=== PATIENT | male | born 1980 | race African-American/Black ===

== ENCOUNTER 2020-07-18 17:42 | Emergency (ER) | payer OTHER ==
[~2020-07-18] VITALS: Ht 167.6 cm; Wt 70.8 kg
[~2020-07-18 17:42] MED LIST: FLEXERIL PO; IBUPROFEN 800800 M1; NOHOMEMEDICATIONS; NORCO 5-325 TA1 EACH PO
[2020-07-18 19:44] VITALS: BP 128/77
== END 2020-07-18 19:40 | disposition home or self-care (01) ==
LOC: ER 17:42
DX: S16.1XXA Strain of muscle, fascia and tendon at neck level, initial encounter (principal); F17.210 Nicotine dependence, cigarettes, uncomplicated; V49.88XA Car occupant (driver) (passenger) injured in other specified transport accidents, initial encounter; Y93.89 Activity, other specified; Y92.413 State road as the place of occurrence of the external cause; Y99.9 Unspecified external cause status